=== PATIENT | male | born 1970 | race Caucasian/White ===

== ENCOUNTER 2021-01-01 17:10 | Inpatient (IN) | payer MEDICAID ==
[~2021-01-01] VITALS: Ht 188 cm; Wt 100.0 kg
[2021-01-01 17:57] LABS: BASOPHILS % (AUTO) 0.6 % (0-1); EOSINOPHILS # (AUTO) 0.1 X10'3 (0-0.9); HEMATOCRIT 32.1 % (42.0-52.0); HEMOGLOBIN 11.1 g/dl (14.0-17.9); LYMPHOCYTES # (AUTO) 0.7 X10'3 (1.1-4.8); LYMPHOCYTES % (AUTO) 28.7 % (21-51); MEAN CORPUSCULAR HEMOGLOBIN 38.1 PG (27.0-31.0); MEAN CORPUSCULAR HGB CONC 34.7 g/dL (33.0-36.5); MEAN PLATELET VOLUME 8.4 FL (7.4-10.4); MONOCYTES # (AUTO) 0.2 X10'3 (0-0.9); MONOCYTES % (AUTO) 9.9 % (2-12); NEUTROPHILS # (AUTO) 1.4 X10'3 (1.8-7.7); NEUTROPHILS % (AUTO) 56.8 % (42-75); PLATELET COUNT 55 X10'3 (140-440); RED BLOOD COUNT 2.91 X10'6 (4.70-6.10); RED CELL DISTRIBUTION WIDTH 16.9 % (11.5-14.5); WHITE BLOOD COUNT 2.5 X10'3 (4.5-11.0)
[2021-01-01 18:09] LABS: ALANINE AMINOTRANSFERASE 93 U/L (12-78); ALBUMIN 2.8 G/DL (3.4-5.0); ALKALINE PHOSPHATASE 271 IU/L (46-116); ANION GAP 11 (8-16); ASPARTATE AMINO TRANSFERASE 131 U/L (10-37); BILIRUBIN,TOTAL 6.4 MG/DL (0.1-1.0); BLOOD UREA NITROGEN 37 MG/DL (7-18); BUN/CREATININE RATIO 29.6 (5.4-32.0); CALCIUM 9.1 MG/DL (8.5-10.1); CHLORIDE 108 MMOL/L (99-107); CREATININE 1.25 MG/DL (0.60-1.10); ETHANOL < 0.010 GM/DL (0.0-0.010); GLUCOSE 112 MG/DL (70-104); SODIUM 139 MMOL/L (135-145); TOTAL CARBON DIOXIDE 20.4 MMOL/L (24-32); eGFR 61 ML/MIN
[2021-01-01 18:31] LABS: ALBUMIN/GLOBULIN RATIO 0.7 (1.1-1.5); TOTAL PROTEIN 6.8 G/DL (6.4-8.2)
[2021-01-01] MEDS ORDERED: lactulose 20gm/30ml cup PO ONE (19:40)
[2021-01-01 20:10] LABS: TOTAL CELLS COUNTED 100
[2021-01-01 20:11] LABS: ANISOCYTOSIS 1+; PLATELET ESTIMATE DECREASED
[2021-01-01 20:12] LABS: ELLIPTOCYTES 1+
--- NOTE | 2021-01-01 20:20 | NUR ---
Pt continiues to try to set up at and get out of bed. Redirectible with cuing to move back onto bed. Asked if he needed to go to BR and stated yest. Asked if he needed to pee or poop and he said "poop". Pt assisted to BSC and sat for only a few minutes then got up stating he was done. No BM. Bladder scan showing 254 cc's. Pt reports he does not need to pee.
[2021-01-01] MEDS ORDERED: UNABLE TO OBTAIN (20:38)
--- NOTE | 2021-01-01 20:54 | NUR ---
dr. saeed at bedside for admission. updated that no urine has been collected and that an attemptm was made to straight cath but pt too painful. Verbal received for Bladder scan. MD also updated that unable to contact family thus far to get a med rec done. Pt remains a&ox1 and jolie states his first name. Does follow simple commands and moves all extremities.
[2021-01-01] MEDS ORDERED: potassium Cl 40MEQ/1/2NS 520ml 520 ML IV PRN ×2 (21:20)
[2021-01-01] MEDS ORDERED: ondansetron/PF 4mg/2ml inj IV PRN (21:20)
[2021-01-01] MEDS ORDERED: LEVO200T8 PO (21:43)
[2021-01-01] MEDS ORDERED: GABA-530 PO (21:43)
[2021-01-01] MEDS ORDERED: LACT10SO67 PO (21:43)
[2021-01-01] MEDS ORDERED: SPIR25TA5 PO (21:43)
[2021-01-01] MEDS ORDERED: FURO20TA4 PO (21:43)
[2021-01-01] MEDS ORDERED: RIFA550T PO (21:43)
[2021-01-01] MEDS ORDERED: FURO-149 PO (21:45)
[2021-01-01 23:20] VITALS: BP 140/60
--- NOTE | 2021-01-01 23:20 | NUR ---
PATIENT ADMITTED TO ROOM 360A FROM ER FOR HEPATIC ENCEPHALOPATHY. PLACED COMFORTABLE IN BED. VITAL SIGNS TAKEN AND RECORDED.
[2021-01-02 03:25] LABS: CLARITY,URINE CLEAR (Clear); COLOR,URINE YELLOW (Yellow); GLUCOSE, URINE NEGATIVE (Neg); KETONES,URINE NEGATIVE (Neg); LEUKOCYTE ESTERASE ,URINE NEGATIVE (Neg); NITRITES, URINE NEGATIVE (Neg); OCCULT BLOOD,URINE TRACE-LYSED (Neg); PROTEIN,URINE NEGATIVE (Neg)
[2021-01-02 03:26] LABS: UA COLLECTION TYPE VOIDED
[2021-01-02 03:28] LABS: BACTERIA,URINE NONE SEEN /HPF (Neg); RBC,URINE NONE SEEN /HPF (0-2); SQUAMOUS EPITHELIAL CELL,UR NONE SEEN /LPF (FEW); WBC,URINE 0-4 /HPF (0-4)
[2021-01-02 06:14] LABS: EOSINOPHILS # (AUTO) 0.1 X10'3 (0-0.9); HEMOGLOBIN 10.8 g/dl (14.0-17.9); LYMPHOCYTES # (AUTO) 0.9 X10'3 (1.1-4.8); MONOCYTES # (AUTO) 0.3 X10'3 (0-0.9); RED CELL DISTRIBUTION WIDTH 16.9 % (11.5-14.5)
[2021-01-02 06:18] LABS: BASOPHILS % (AUTO) 0.6 % (0-1); EOSINOPHILS % (AUTO) 3.5 % (0-6); HEMATOCRIT 30.9 % (42.0-52.0); LYMPHOCYTES % (AUTO) 31.4 % (21-51); MEAN CORPUSCULAR HEMOGLOBIN 38.5 PG (27.0-31.0); MEAN CORPUSCULAR VOLUME 110.2 FL (78-98); MEAN PLATELET VOLUME 8.6 FL (7.4-10.4); MONOCYTES % (AUTO) 11.8 % (2-12); NEUTROPHILS # (AUTO) 1.4 X10'3 (1.8-7.7); NEUTROPHILS % (AUTO) 52.7 % (42-75); WHITE BLOOD COUNT 2.7 X10'3 (4.5-11.0)
--- NOTE | 2021-01-02 06:25 | NUR ---
CALLED DR. GARAY FOR CRITICAL PLATELET 50 NO NEW ORDERS MADE.
[2021-01-02 06:26] LABS: PLATELET COUNT 50 X10'3 (140-440)
--- NOTE | 2021-01-02 06:30 | NUR ---
Problems reprioritized. Patient report given, questions answered & plan of care reviewed with HALIMA ROBERTSON.
[2021-01-02 06:40] LABS: ALANINE AMINOTRANSFERASE 88 U/L (12-78); ALBUMIN 2.7 G/DL (3.4-5.0); ALKALINE PHOSPHATASE 236 IU/L (46-116); ANION GAP 11 (8-16); ASPARTATE AMINO TRANSFERASE 126 U/L (10-37); BILIRUBIN,TOTAL 7.1 MG/DL (0.1-1.0); CALCIUM 9.2 MG/DL (8.5-10.1); CHLORIDE 110 MMOL/L (99-107); CREATININE 1.04 MG/DL (0.60-1.10); GLUCOSE 98 MG/DL (70-104); POTASSIUM 3.9 MMOL/L (3.5-5.1); SODIUM 141 MMOL/L (135-145); TOTAL CARBON DIOXIDE 20.4 MMOL/L (24-32); eGFR 75 ML/MIN
[2021-01-02 06:45] LABS: ALBUMIN/GLOBULIN RATIO 0.7 (1.1-1.5); TOTAL PROTEIN 6.5 G/DL (6.4-8.2)
[2021-01-02 07:20] LABS: BLOOD UREA NITROGEN 31 MG/DL (7-18); BUN/CREATININE RATIO 29.8 (5.4-32.0)
[2021-01-02 07:40] VITALS: BP 139/55
[2021-01-02] MEDS ORDERED: K and/or MAG REPLACEMENT MC SCH (08:00)
[2021-01-02] MEDS ORDERED: lactulose 20gm/30ml cup PO SCH ×2 (08:00→12:00)
[2021-01-02] MEDS: levoTHYROXINE 100mcg tablet PO SCH (08:52)
[2021-01-02] MEDS: rifaximin 550mg tablet PO SCH ×2 (08:55→20:07)
[2021-01-02] MEDS: spironolactone 25 MG tablet PO SCH ×2 (08:55→20:07)
[2021-01-02 09:33] LABS: ANISOCYTOSIS 1+; ELLIPTOCYTES 1+; PLATELET ESTIMATE DECREASED
[2021-01-02] MEDS ORDERED: magnesium 4gm in 100ml NS 100 ML IV PRN (10:35)
[2021-01-02] MEDS ORDERED: potassium Cl 20 mEq SR tablet PO PRN ×2 (10:35)
[2021-01-02] MEDS ORDERED: magnesium Cl slow-release 64mg tablet PO PRN (10:35)
[2021-01-02] MEDS ORDERED: potassium Cl 40MEQ/1/2NS 520ml 520 ML IV PRN (10:35)
[2021-01-02 11:36] VITALS: BP 130/53
[2021-01-02 13:07] LABS: URINE AMPHETAMINE SCREEN NEGATIVE (Neg); URINE BARBITUATE SCREEN NEGATIVE (Neg); URINE BENZODIAZEPINES SCREEN NEGATIVE (Neg); URINE CANNABINOID SCREEN NEGATIVE (Neg); URINE COCAINE SCREEN NEGATIVE (Neg); URINE METHADONE SCREEN NEGATIVE (Neg); URINE OPIATE SCREEN NEGATIVE (Neg); URINE PHENCYCLIDINE SCREEN NEGATIVE (Neg)
--- NOTE | 2021-01-02 13:27 | NUR ---
PAGE SENT TO MARYLIN ROBERTSON... [address]: PATIENT NEEDS TO BE DARTED. THANKS!
--- NOTE | 2021-01-02 16:11 | NUR ---
PAGER ID: [phone] MESSAGE: [id number]: AMMONIA 85 NOW. WOULD YOU LIKE TO CONTINUE LACTULOSE Q4H? HALIMA [id number]
--- NOTE | 2021-01-02 18:09 | NUR ---
Problems reprioritized. Patient report given, questions answered & plan of care reviewed with MARCELO PARRISH.
--- NOTE | 2021-01-02 18:39 | NUR ---
Patient in room [facility]. I have received report from MARCELO Finney and had the opportunity to ask questions and assume patient care.
[2021-01-02 19:00] VITALS: BP 115/57
[2021-01-02] MEDS: K and/or MAG REPLACEMENT MC SCH (20:00)
[2021-01-03] VITALS: BP 120/72
[2021-01-03] MEDS: lactulose 20gm/30ml cup PO SCH ×2 (01:30→07:58)
--- NOTE | 2021-01-03 06:05 | NUR ---
Problems reprioritized. Patient report given, questions answered & plan of care reviewed with MARCELO Finney.
[2021-01-03 07:09] LABS: BASOPHILS % (AUTO) 0.5 % (0-1); EOSINOPHILS # (AUTO) 0.1 X10'3 (0-0.9); EOSINOPHILS % (AUTO) 5.4 % (0-6); HEMATOCRIT 29.1 % (42.0-52.0); HEMOGLOBIN 10.1 g/dl (14.0-17.9); LYMPHOCYTES # (AUTO) 0.9 X10'3 (1.1-4.8); LYMPHOCYTES % (AUTO) 32.8 % (21-51); MEAN CORPUSCULAR HEMOGLOBIN 38.7 PG (27.0-31.0); MEAN CORPUSCULAR HGB CONC 34.8 g/dL (33.0-36.5); MEAN CORPUSCULAR VOLUME 111.2 FL (78-98); MEAN PLATELET VOLUME 8.2 FL (7.4-10.4); MONOCYTES # (AUTO) 0.3 X10'3 (0-0.9); MONOCYTES % (AUTO) 10.4 % (2-12); NEUTROPHILS # (AUTO) 1.4 X10'3 (1.8-7.7); NEUTROPHILS % (AUTO) 50.9 % (42-75); PLATELET COUNT 55 X10'3 (140-440); RED BLOOD COUNT 2.62 X10'6 (4.70-6.10); RED CELL DISTRIBUTION WIDTH 16.8 % (11.5-14.5); WHITE BLOOD COUNT 2.8 X10'3 (4.5-11.0)
[2021-01-03 07:36] LABS: ALANINE AMINOTRANSFERASE 91 U/L (12-78); ALBUMIN 2.4 G/DL (3.4-5.0); ALKALINE PHOSPHATASE 221 IU/L (46-116); ANION GAP 10 (8-16); ASPARTATE AMINO TRANSFERASE 144 U/L (10-37); BILIRUBIN,TOTAL 8.1 MG/DL (0.1-1.0); BLOOD UREA NITROGEN 24 MG/DL (7-18); CALCIUM 8.8 MG/DL (8.5-10.1); CHLORIDE 111 MMOL/L (99-107); CREATININE 0.96 MG/DL (0.60-1.10); GLUCOSE 102 MG/DL (70-104); SODIUM 142 MMOL/L (135-145); TOTAL CARBON DIOXIDE 21.1 MMOL/L (24-32); eGFR 82 ML/MIN
[2021-01-03 07:38] LABS: ALBUMIN/GLOBULIN RATIO 0.7 (1.1-1.5); PHOSPHORUS 3.6 MG/DL (2.3-4.5); TOTAL PROTEIN 5.8 G/DL (6.4-8.2)
[2021-01-03 07:56] VITALS: BP 113/63
[2021-01-03 07:58] VITALS: BP_SYST 113
[2021-01-03] MEDS: K and/or MAG REPLACEMENT MC SCH (07:58)
[2021-01-03] MEDS: rifaximin 550mg tablet PO SCH (07:58)
[2021-01-03] MEDS: spironolactone 25 MG tablet PO SCH (07:58)
[2021-01-03] MEDS: levoTHYROXINE 100mcg tablet PO SCH (07:58)
[2021-01-03 09:33] LABS: TOTAL CELLS COUNTED 100
[2021-01-03 09:36] LABS: ANISOCYTOSIS 1+; PLATELET ESTIMATE DECREASED; SMUDGE CELLS FEW
[2021-01-03 09:38] LABS: BURR CELLS 1+; TEAR DROP CELLS FEW
--- NOTE | 2021-01-03 11:57 | NUR ---
PATIENT STABLE AND APPROPRIATE FOR DISCHARGE HOME. IV REMOVED, ALL BELONGINGS TAKEN FROM ROOM. NO NEW MEDICATIONS ORDERED. PATIENT IS AWARE OF NEXT DUE DOSES ON ALL HOME MEDICATIONS. ALL DISCHARGE INSTRUCTIONS GIVEN AND REVIEWED WITH PATIENT, ALL QUESTIONS ANSWERED.
== END 2021-01-03 11:55 | disposition home or self-care (01) | DRG 279 ==
LOC: EDBD 17:10 → ER 17:10 → ED HOLD 21:18 → SUR 3N 23:15
PROVIDERS: ADMIT Internal Medicine; ATTEND Family Medicine
DX: K72.90 Hepatic failure, unspecified without coma (principal); D61.818 Other pancytopenia; Z76.82 Awaiting organ transplant status; K70.30 Alcoholic cirrhosis of liver without ascites; E03.9 Hypothyroidism, unspecified; F10.20 Alcohol dependence, uncomplicated; K59.00 Constipation, unspecified; K21.9 Gastro-esophageal reflux disease without esophagitis
CPT/HCPCS: 36415; 71045; 80053; 80305; 80320; 81001; 82140; 83735; 84100; 84145; 84443; 85007; 85008; 85025; 85610; 87081; 99285; G0378